=== PATIENT | male | born 1935 | race Caucasian/White ===

== ENCOUNTER 2019-09-20 23:46 | Emergency (ER) | payer OTHER, MEDICAID ==
[~2019-09-20] VITALS: Ht 172.7 cm; Wt 86.0 kg
[2019-09-21] MEDS ORDERED: KETOROLAC 30MG/ML VIAL IV STA (00:35)
[2019-09-21 01:48] LABS: BASOPHILS % 0.7 % (0.0-2.0); EOSINOPHILS % 1.3 % (0.0-5.0); HEMATOCRIT. 36.1 % (42.0-52.0); HEMOGLOBIN. 11.9 g/dL (14.0-18.0); MEAN CORPUSCULAR HEMOGLOBIN 26.3 pg (28.0-32.0); MEAN CORPUSCULAR VOLUME 79.8 fL (80.0-94.0); MEAN PLATELET VOLUME 8.9 fl (7.4-10.4); MONOCYTES % 9.6 % (2.0-8.0); NEUTROPHILS % 71.4 % (40.0-76.0); PLATELET 186 x1000/uL (130-400); RED BLOOD CELL COUNT 4.53 mill/uL (4.7-6.1); RED CELL DISTRIBUTION WIDTH 16.7 % (11.6-14.6)
[2019-09-21 01:52] LABS: CHLORIDE 102 mEq/L (98-107)
[2019-09-21] MEDS ORDERED: INSULIN REGULAR (HUMULIN R) 300UNITS/3ML SUBCUT NR (02:45)
[2019-09-21 04:00] VITALS: BP 134/78
[2019-09-22] MEDS ORDERED: CLOP75TA4 PO (16:32)
[2019-09-22] MEDS ORDERED: POTA20TA82 MT (16:32)
[2019-09-22] MEDS ORDERED: LORA-985 PO (16:32)
[2019-09-22] MEDS ORDERED: INSU100C6 SQ (16:32)
[2019-09-22] MEDS ORDERED: INSU100I28 SQ (16:32)
[2019-09-22] MEDS ORDERED: TAMS-11 PO (16:32)
[2019-09-22] MEDS ORDERED: LOSA50TA3 PO (16:32)
[2019-09-22] MEDS ORDERED: OMEP20TA15 PO (16:32)
[2019-09-22] MEDS ORDERED: ATOR10TA MT (16:32)
[2019-09-24] MEDS ORDERED: APIX5TAB MT (11:55)
[2019-09-24] MEDS ORDERED: METF-416 MT (11:55)
[2019-09-24] MEDS ORDERED: GABA-529 MT (11:55)
== END 2019-09-21 05:00 | disposition home or self-care (01) ==
LOC: ER 23:46
DX: E11.40 Type 2 diabetes mellitus with diabetic neuropathy, unspecified (principal); E11.65 Type 2 diabetes mellitus with hyperglycemia; Z79.4 Long term (current) use of insulin
CPT/HCPCS: 36415; 71045; 80053; 82962; 85025; 93005; 93971; 96374; 99285; J1815; J1885